=== PATIENT | male | born 1960 | race Caucasian/White ===

== ENCOUNTER 2021-03-17 18:27 | Emergency (ER) | payer OTHER, SELFPAY ==
--- NOTE | 2021-03-17 19:16 | XRR_ITS ---
PROCEDURE INFORMATION: Exam: XR Chest Exam date and time: 03/17/2021 7:16 PM Age: 60 years old Clinical indication: Shortness of breath; Additional info: SOB TECHNIQUE: Imaging protocol: XR of the chest. Views: 1 view. COMPARISON: No relevant prior studies available. FINDINGS: Lungs: Emphysematous changes. Pleural spaces: Unremarkable. No pleural effusion. No pneumothorax. Heart/Mediastinum: Cardiomegaly. Bones/joints: Unremarkable. XR/XR chest 1V portable [id number] IMPRESSION: 1. Cardiomegaly. 2. Emphysematous changes.
--- NOTE | 2021-03-17 19:16 | PC.NURSE ---
called to triage no answer will attempt again.
[2021-03-17 20:18] VITALS: BP 133/90; PULSE 90; RESP 20; TEMP 36.8; O2SAT 93; BMI 39.5
--- NOTE | 2021-03-18 01:09 | PC.NURSE ---
called for room not in waiting room.
== END 2021-03-18 | disposition left against medical advice (07) ==
PROVIDERS: Emergency Provider Emergency Medicine
DX: Z53.21 Procedure and treatment not carried out due to patient leaving prior to being seen by health care provider (principal)
CPT/HCPCS: 71045